=== PATIENT | female | born 1960 | race Caucasian/White ===

== ENCOUNTER → 2016-11-14 | Outpatient (CLI) | payer OTHER ==
--- NOTE | 2016-11-15 07:25 | MM ---
Reason for exam: follow-up at short interval from prior study. Last mammogram was performed 8 months ago. History: Patient is postmenopausal, has history of other cancer at age 55, and is nulliparous. Benign lumpectomy of the right breast, 1990. Taking estrogen for 10 years beginning at age 46. Physical Findings: Nurse did not find any significant physical abnormalities on exam. MG 3D Diag Mammo W/Cad LT CC and MLO view(s) were taken of the left breast. Prior study comparison: March 07, 2016, bilateral MG 3d screening mammo w/cad. March 02, 2015, bilateral MG screening mammo w CAD. The breast tissue is heterogeneously dense. This may lower the sensitivity of mammography. There is chronic nodularity bilaterally. There is no dominant lesion. No significant new findings when compared with previous films. These results were verbally communicated with the patient and result sheet given to the patient on 11/14/16. ASSESSMENT: Benign, BI-RAD 2 RECOMMENDATION: Return to routine screening mammogram schedule for both breasts. Back on schedule for February 2017.
== END | disposition home or self-care (01) ==
LOC: RADMAMWWP 15:34
PROVIDERS: ATTEND Family Medicine
DX: R92.8 Other abnormal and inconclusive findings on diagnostic imaging of breast (principal)
CPT/HCPCS: G0206; G0279

== ENCOUNTER → 2017-05-14 | Outpatient (CLI) | payer OTHER ==
--- NOTE | 2017-05-15 09:13 | MM ---
Reason for exam: screening (asymptomatic). Last mammogram was performed 6 months ago. History: Patient is postmenopausal, has history of other cancer at age 55, and is nulliparous. Benign lumpectomy of the right breast, 1990. Taking estrogen for 10 years beginning at age 46. Physical Findings: A clinical breast exam by your physician is recommended on an annual basis and results should be correlated with mammographic findings. MG 3D Screening Mammo W/Cad Bilateral CC and MLO view(s) were taken. Prior study comparison: November 14, 2016, left breast MG 3d diag mammo w/cad LT. March 07, 2016, bilateral MG 3d screening mammo w/cad. March 02, 2015, bilateral MG screening mammo w CAD. The breast tissue is heterogeneously dense. This may lower the sensitivity of mammography. There is chronic nodularity bilaterally. There is no discrete abnormality. ASSESSMENT: Negative, BI-RAD 1 RECOMMENDATION: Routine screening mammogram of both breasts in 1 year.
== END | disposition home or self-care (01) ==
LOC: RADMAMWWP 16:14
PROVIDERS: ATTEND Family Medicine
DX: Z12.31 Encounter for screening mammogram for malignant neoplasm of breast (principal)
CPT/HCPCS: 77063; 77067

== ENCOUNTER → 2017-10-16 | Outpatient (CLI) | payer OTHER ==
--- NOTE | 2017-10-17 09:47 | USB ---
Reason for exam: clinical finding. History: Patient is postmenopausal, has history of other cancer at age 55, and is nulliparous. Benign lumpectomy of the right breast, 1990. Taking estrogen for 10 years beginning at age 46. Indicated problem(s): palpable abnormality in the right breast. Physical Findings: Nurse Summary: 1cm nodule, moves, nipple (nurse dw). US Breast RT Right complete breast ultrasound includes all four quadrants, the retroareolar region and axilla. Finding demonstrates a 0.4 x 0.4 x 0.4cm complicated cyst with increase through transmission at 7 o'clock and hypoechoic ductal prominence at 9 o'clock. These results were verbally communicated with the patient and result sheet given to the patient on 10/16/17. ASSESSMENT: Benign, BI-RAD 2 RECOMMENDATION: Return to routine screening mammogram schedule for both breasts. Manage patient on a clinical basis. If nipple discharge occurs ductogram could be performed.
== END | disposition home or self-care (01) ==
LOC: RADUSWWP 15:28
PROVIDERS: ATTEND Family Medicine
DX: N64.4 Mastodynia (principal)

== ENCOUNTER → 2018-03-24 | Outpatient (CLI) | payer OTHER ==
--- NOTE | 2018-03-24 10:38 | US ---
EXAMINATION TYPE: US gallbladder DATE OF EXAM: 03/24/2018 COMPARISON: NONE CLINICAL HISTORY: R10.11 right upper quadrant pain. EXAM MEASUREMENTS: Liver Length: 13.7 cm Gallbladder Wall: 0.3 cm CBD: 0.5 cm Right Kidney: 9.9 x 4.7 x 4.9 cm Pancreas: visualized portions wnl Liver: wnl Gallbladder: multiple mobile stones with shadowing Evidence for sonographic Pozo's sign: No CBD: wnl Right Kidney: No hydronephrosis or masses seen, lower pole partially obscured by bowel gas. IMPRESSION: Cholelithiasis
== END | disposition home or self-care (01) ==
LOC: RADUSWWP 07:09
PROVIDERS: ATTEND Surgery
DX: K80.20 Calculus of gallbladder without cholecystitis without obstruction (principal)
CPT/HCPCS: 76705

== ENCOUNTER → 2018-05-16 | Outpatient (CLI) | payer OTHER ==
--- NOTE | 2018-05-23 13:12 | MM ---
Reason for exam: screening (asymptomatic). Last mammogram was performed 1 year ago. History: Patient is postmenopausal, has history of other cancer at age 55, and is nulliparous. Benign lumpectomy of the right breast, 1990. Taking estrogen for 10 years beginning at age 46. MG 3D Screening Mammo W/Cad Bilateral CC and MLO view(s) were taken. Prior study comparison: May 14, 2017, bilateral MG 3d screening mammo w/cad. November 14, 2016, left breast MG 3d diag mammo w/cad LT. The breast tissue is heterogeneously dense. This may lower the sensitivity of mammography. No suspicious abnormality in the left breast. There is retroareoral central distortion in the right breast on the 3D images. ASSESSMENT: Incomplete: need additional imaging evaluation, BI-RAD 0 RECOMMENDATION: Special view mammogram of the right breast.
== END | disposition home or self-care (01) ==
LOC: RADMAMWWP 08:56
PROVIDERS: ATTEND Surgery
DX: Z12.31 Encounter for screening mammogram for malignant neoplasm of breast (principal)
CPT/HCPCS: 77063; 77067

== ENCOUNTER → 2018-06-11 | Outpatient (CLI) | payer OTHER ==
--- NOTE | 2018-06-13 12:09 | MM ---
Reason for exam: additional evaluation requested from abnormal screening. Last mammogram was performed 1 month ago. History: Patient is postmenopausal, has history of other cancer at age 55, and is nulliparous. Benign lumpectomy of the right breast, 1990. Taking estrogen for 10 years beginning at age 46. Taking progesterone for 10 years beginning at age 46. Physical Findings: Nurse Summary: 1cm nodule in the right breast at 8 o'clock (nurse mj). MG 3D Work Up W/Cad RT Spot compression CC, spot compression MLO, and LM view(s) were taken of the right breast. Prior study comparison: May 16, 2018, bilateral MG 3d screening mammo w/cad. May 14, 2017, bilateral MG 3d screening mammo w/cad. The breast tissue is heterogeneously dense. This may lower the sensitivity of mammography. Dense tissues are present. Palpable marker at 8 o'clock corresponds to site of pain. No definite persisting abnormality. Ultrasound recommended. These results were verbally communicated with the patient and result sheet given to the patient on 06/11/18. ASSESSMENT: Incomplete: need additional imaging evaluation, BI-RAD 0 RECOMMENDATION: Ultrasound of the right breast. (7-11 o'clock, particular attention 8 o'clock)
--- NOTE | 2018-06-13 12:11 | USB ---
Reason for exam: additional evaluation requested from abnormal screening. History: Patient is postmenopausal, has history of other cancer at age 55, and is nulliparous. Benign lumpectomy of the right breast, 1990. Taking estrogen for 10 years beginning at age 46. Taking progesterone for 10 years beginning at age 46. US Breast Workup Limited RT Right limited breast ultrasound including focal area of concern, retroareolar and axilla demonstrates a 4 x 4 x 4mm oval, cystic, benign lesion at 9 o'clock, a 3 x 3 x 3mm oval, cystic, benign lesion at 11 o'clock and benign duct ectasia. No suspicious finding at the palpable at 8 o'clock position. Scanned 6-12 o'clock. These results were verbally communicated with the patient and result sheet given to the patient on 06/11/18. ASSESSMENT: Benign, BI-RAD 2 RECOMMENDATION: Return to routine screening mammogram schedule for the right breast. Manage on a clinical basis with regard to any suspicious palpable abnormality.
== END | disposition home or self-care (01) ==
LOC: RADMAMWWP 14:40
PROVIDERS: ATTEND Surgery
DX: R92.8 Other abnormal and inconclusive findings on diagnostic imaging of breast (principal)
CPT/HCPCS: 77061; 77065

== ENCOUNTER 2018-12-21 10:33 | Emergency (ER) | payer OTHER ==
[2018-12-21 10:42] VITALS: BP 146/81; PULSE 86; RESP 18; TEMP 97.3
[2018-12-21] MEDS ORDERED: HYDROcodone/APAP 5-325MG 1 EACH TAB PO STA (11:02)
--- NOTE | 2018-12-21 11:24 | XR ---
EXAMINATION TYPE: XR lumbosacral spine min 4V DATE OF EXAM: 12/21/2018 COMPARISON: None HISTORY: Pain TECHNIQUE: Five-view lumbar spine FINDINGS: There 5 lumbar-type vertebral bodies. Pedicles are intact. There is loss of disc height L4- 5. Spondylosis is present. No spondylolytic defects are evident. Degenerative disc changes are presen t diffusely throughout the lumbar spine, less than L4-5. Some vacuum disc phenomenon may be present L 4-5. IMPRESSION: 1. Diffuse degenerative disc changes, greatest L4-5.
--- NOTE | 2018-12-21 11:46 | ED ---
Back Pain HPI - General Chief Complaint: Back Pain/Injury Stated Complaint: Back pain Time Seen by Provider: 12/21/18 10:43 Source: patient, RN notes reviewed Limitations: no limitations - History of Present Illness Initial Comments: This a 58-year-old female presents emergency Department chief complaint of low back pain. She has chronic low back pain was had increase in symptoms or last week. Denies any trauma or injury or known injury that caused worsening symptoms. She states she has a burning sensation primary left low back and radiates down her legs. She denies any bowel, bladder incontinence or retention. She has no dysuria no hematuria denies any nausea vomiting diarrhea constipation. Patient did see PCP in which she was given a shot of Toradol states upset her stomach. Patient states that she also was given Robaxin by her neurologist. Patient's had an MRI of July but states that she does not know any specifics of this she has been working with her chiropractor for traction and adjustments. - Related Data Previous Rx's Medication Instructions Recorded Hydrocodone/Acetaminophen [[place] 1 tab PO Q6HR PRN #12 tab 12/21/18 5-325] predniSONE 50 mg PO DAILY #5 tab 12/21/18 Allergies Allergy/AdvReac Type Severity Reaction Status Date / Time No Known Allergies Allergy Verified 12/21/18 10:42 Review of Systems ROS Statement: Those systems with pertinent positive or pertinent negative responses have been documented in the HPI. ROS Other: All systems not noted in ROS Statement are negative. Past Medical History Additional Past Medical History / Comment(s): back pain History of Any Multi-Drug Resistant Organisms: None Reported Past Surgical History: Hysterectomy, Orthopedic Surgery Additional Past Surgical History / Comment(s): colon resection - precancerous Past Psychological History: No Psychological Hx Reported Smoking Status: Never smoker Past Alcohol Use History: None Reported Past Drug Use History: None Reported General Exam Limitations: no limitations General appearance: alert, in no apparent distress Head exam: Present: atraumatic, normocephalic, normal inspection Eye exam: Present: normal appearance, PERRL, EOMI. Absent: scleral icterus, conjunctival injection, periorbital swelling Neck exam: Present: normal inspection, full ROM. Absent: tenderness, meningismus, lymphadenopathy Respiratory exam: Present: normal lung sounds bilaterally. Absent: respiratory distress, wheezes, rales, rhonchi, stridor Cardiovascular Exam: Present: regular rate, normal rhythm, normal heart sounds. Absent: systolic murmur, diastolic murmur, rubs, gallop, clicks GI/Abdominal exam: Present: soft, normal bowel sounds. Absent: distended, tenderness, guarding, rebound, rigid Extremities exam: Present: other (Lower extremity strength bilaterally there is moderate discomfort with left straight leg raise, neurovascular intact equal color equal warmth equal pulses) Back exam: Present: full ROM (Moderate discomfort), tenderness (Moderate tenderness left lumbar region), paraspinal tenderness. Absent: vertebral tenderness Neurological exam: Present: alert, oriented X3, reflexes normal. Absent: motor sensory deficit Skin exam: Present: warm, dry, intact, normal color. Absent: rash Course Vital Signs 12/21/18 10:39 Temperature 97.3 F L Pulse Rate 86 Respiratory 18 Rate Blood Pressure 146/81 O2 Sat by Pulse 99 Oximetry Medical Decision Making - Medical Decision Making 58-year-old female presented for low back pain. Patient has acute on chronic exacerbation of low back pain. Patient had x-rays which shows severe degenerati ve changes and some spondylosis. Patient was given [place] emergency department. This did improve her symptoms. Patient we given prescription. Patient will follow-up with Dr. Vogel with orthopedics and return for any worsening symptoms. Disposition Clinical Impression: Lumbar radiculopathy, acute, Acute exacerbation of chronic low back pain Disposition: HOME SELF-CARE Condition: Stable Instructions (If sedation given, give patient instructions): Acute Low Back Pain (ED) Additional Instructions: Please return to the Emergency Department if symptoms worsen or any other concerns. Prescriptions: Hydrocodone/Acetaminophen [[place] 5-325] 1 tab PO Q6HR PRN #12 tab PRN Reason: Pain predniSONE 50 mg PO DAILY #5 tab Is patient prescribed a controlled substance at d/c from ED?: Yes When asked, does pt state using other controlled substances?: No If prescribed controlled substance>3 days was MAPS reviewed?: Prescribed <3 Days If opioid is for acute pain is fill amount 7 days or less?: Yes If Rx opioid, was Start Talking consent form obtained?: Yes Referrals: Génesis Scott III, MD [Primary Care Provider] - 1-2 days Felecia Hyman DO [Doctor of Osteopathic Medicine] - 1-2 days Time of Disposition: 11:46
== END 2018-12-21 12:34 | disposition home or self-care (01) ==
LOC: EC 10:33
DX: M47.26 Other spondylosis with radiculopathy, lumbar region (principal)
CPT/HCPCS: 72110; 99283

== ENCOUNTER → 2019-06-02 | Outpatient (CLI) | payer OTHER ==
--- NOTE | 2019-06-03 08:53 | MM ---
Reason for exam: additional evaluation requested from prior study. Last mammogram was performed 1 year ago. History: Patient is postmenopausal, has history of other cancer at age 55, and is nulliparous. Benign cyst aspiration of the right breast, 1990. Taking estrogen for 12 years beginning at age 46. Taking progesterone for 12 years beginning at age 46. Physical Findings: Nurse did not find any significant physical abnormalities on exam. MG 3D Diag Mammo W/Cad BHAVESH Bilateral CC and MLO view(s) were taken. Prior study comparison: June 11, 2018, right breast MG 3d work up w/cad RT. May 16, 2018, bilateral MG 3d screening mammo w/cad. The breast tissue is heterogeneously dense. This may lower the sensitivity of mammography. There is chronic nodularity bilaterally. There is no discrete abnormality. These results were verbally communicated with the patient and result sheet given to the patient on 06/02/19. ASSESSMENT: Benign, BI-RAD 2 RECOMMENDATION: Routine screening mammogram of both breasts in 1 year.
== END | disposition home or self-care (01) ==
LOC: RADMAMWWP 15:01
PROVIDERS: ATTEND Surgery
DX: R92.8 Other abnormal and inconclusive findings on diagnostic imaging of breast (principal)
CPT/HCPCS: 77062; 77066

== ENCOUNTER → 2020-03-28 | Outpatient (CLI) | payer OTHER ==
--- NOTE | 2020-03-28 14:50 | MM ---
Reason for exam: clinical finding. Last mammogram was performed 10 months ago. History: Patient is postmenopausal, has history of other cancer at age 55, and is nulliparous. Benign cyst aspiration of the right breast, 1990. Taking estrogen for 12 years beginning at age 46. Taking progesterone for 12 years beginning at age 46. Physical Findings: Nurse did not find any significant physical abnormalities on exam. MG 3D Diag Mammo W/Cad BHAVESH Bilateral CC, MLO, and XCCL view(s) were taken. Prior study comparison: June 02, 2019, bilateral MG 3d diag mammo w/cad BHAVESH. June 11, 2018, right breast MG 3d work up w/cad RT. The breast tissue is heterogeneously dense. This may lower the sensitivity of mammography. Finding #1: There is a 10 mm mass in the upper outer quadrant of the right breast. Finding #2: There are typically benign calcifications in both breasts. These results were verbally communicated with the patient and result sheet given to the patient on 03/28/20. ASSESSMENT: Incomplete: need additional imaging evaluation, BI-RAD 0 RECOMMENDATION: Ultrasound of the right breast.
--- NOTE | 2020-03-28 14:52 | USB ---
Reason for exam: additional evaluation requested from abnormal screening. History: Patient is postmenopausal, has history of other cancer at age 55, and is nulliparous. Benign cyst aspiration of the right breast, 1990. Taking estrogen for 12 years beginning at age 46. Taking progesterone for 12 years beginning at age 46. US Breast RT Right complete breast ultrasound includes all four quadrants, the retroareolar region and axilla. Finding demonstrates a a 3 x 3 x 4mm oval, cystic lesion at 4 o'clock, a 3 x 3 x 3mm oval, cystic lesion at 7 o'clock, a 8 x 4 x 7mm cystic lesion at 8 o'clock, a 3 x 2 x 2mm cystic lesion at 10 o'clock and duct ectasia. These results were verbally communicated with the patient and result sheet given to the patient on 03/28/20. ASSESSMENT: Probably benign, BI-RAD 3 RECOMMENDATION: Follow-up diagnostic mammogram and ultrasound of the right breast in 6 months.
== END | disposition home or self-care (01) ==
LOC: RADMAMWWP 13:32
PROVIDERS: ATTEND Surgery
DX: N64.4 Mastodynia (principal)
CPT/HCPCS: 77062; 77066

== ENCOUNTER 2020-06-01 12:14 | Emergency (ER) | payer OTHER ==
[2020-06-01 12:22] VITALS: TEMP 98.1
[2020-06-01] MEDS ORDERED: ALPRAZolam 0.5 MG TAB PO STA (12:39)
--- NOTE | 2020-06-01 12:41 | ED ---
General Adult HPI - General Chief complaint: Shortness of Breath Stated complaint: SOB Time Seen by Provider: 06/01/20 12:25 Source: patient Mode of arrival: ambulatory Limitations: no limitations - History of Present Illness Initial comments: Dictation was produced using [employer] dictation software. please excuse any grammatical, word or spelling errors. This patient was cared for during a federal and state declared state of emergency secondary to Covid 19 Chief Complaint: 59-year-old female past medical history of back pain and hor adrien therapy presents with 3 days of shortness of breath. History of Present Illness: 59-year-old female she presents with shortness of breath. Patient has been having shortness of breath for the last 3-4 days. She went to see her primary care physician yesterday who ordered a outpatient ultrasound of her right lower extremity to rule out DVT. Patient has some ankle pain. She denies any calf pain, popliteal pain or medial thigh pain. Patient has any cough. No fevers. Since that her symptoms are worse with talking, exerting herself and lying flat. Patient does feel anxious. She did test for coronavirus 4 times all came up negative. Patient takes hormone therapy pills. She states that her PCP has been weaning her off of them. The ROS documented in this emergency department record has been reviewed and confirmed by me. Those systems with pertinent positive or negative responses have been documented in the HPI. All other systems are other negative and/or noncontributory. PHYSICAL EXAM: General Impression: Alert and oriented x3, not in acute distress HEENT: Normocephalic atraumatic, extra-ocular movements intact, pupils equal and reactive to light bilaterally, mucous membranes moist. Cardiovascular: Heart regular rate and rhythm Chest: Able to complete full sentences, no retractions, no tachypnea, lungs clear to auscultation bilaterally Abdomen: abdomen soft, non-tender, non-distended, no organomegaly Musculoskeletal: Pulses present and equal in all extremities, no peripheral edema Motor: no focal deficits noted Neurological: CN II-XII grossly intact, no focal motor or sensory deficits noted Skin: Intact with no visualized rashes Psych: Tearful, anxious ED course: 59-year-old female presents to the emergency Department with shortness of breath. Vital signs upon arrival are within acceptable limits.Laboratory evaluation obtained. CBC unremarkable. Coag panel metabolic panel is negative. Troponins negative. Brain natruretic peptide is negative. CT angios the chest shows no evidence for pulmonary embolism. No suspicious acute pulmonary process. Ultrasound of the lower extremity shows no DVT. Patient's well-appearing at bedside. Patient likely has component of anxiety. Patient be discharged. EKG interpretation: Ventricular rate 82, sinus rhythm,. 166, QRS 76, QTC 427. No AL prolongation, no QTC prolongation, no ST or T-wave changes noted. Overall, this EKG is unremarkable - Related Data Previous Rx's Medication Instructions Recorded Hydrocodone/Acetaminophen [[place] 1 tab PO Q6HR PRN #12 tab 12/21/18 5-325] predniSONE 50 mg PO DAILY #5 tab 12/21/18 Allergies Allergy/AdvReac Type Severity Reaction Status Date / Time No Known Allergies Allergy Verified 06/01/20 12:21 Review of Systems ROS Statement: Those systems with pertinent positive or pertinent negative responses have been documented in the HPI. ROS Other: All systems not noted in ROS Statement are negative. Past Medical History Additional Past Medical History / Comment(s): back pain History of Any Multi-Drug Resistant Organisms: None Reported Past Surgical History: Hysterectomy, Orthopedic Surgery Additional Past Surgical History / Comment(s): colon resection - precancerous Past Psychological History: No Psychological Hx Reported Past Alcohol Use History: None Reported Past Drug Use History: None Reported General Exam Limitations: no limitations Course Vital Signs 06/01/20 12:15 Temperature 98.1 F Pulse Rate 82 Respiratory 18 Rate Blood Pressure 163/85 O2 Sat by Pulse 98 Oximetry Medical Decision Making - Lab Data Result diagrams: 06/01/20 12:53 06/01/20 12:53 Lab Results 06/01/20 06/01/20 06/01/20 Range/Units 12:53 12:53 12:53 WBC 12.6 H (3.8-10.6) k/uL RBC 4.99 (3.80-5.40) m/uL Hgb 15.5 (11.4-16.0) gm/dL Hct 44.7 (34.0-46.0) % MCV 89.6 (80.0-100.0) fL MCH 31.1 (25.0-35.0) pg MCHC 34.8 (31.0-37.0) g/dL RDW 12.5 (11.5-15.5) % Plt Count 271 (150-450) k/uL MPV 7.7 Neutrophils % 75 % Lymphocytes % 18 % Monocytes % 4 % Eosinophils % 2 % Basophils % 1 % Neutrophils # 9.5 H (1.3-7.7) k/uL Lymphocytes # 2.3 (1.0-4.8) k/uL Monocytes # 0.5 (0-1.0) k/uL Eosinophils # 0.2 (0-0.7) k/uL Basophils # 0.1 (0-0.2) k/uL PT 9.8 (9.0-12.0) sec INR 0.9 (<1.2) APTT 22.7 (22.0-30.0) sec Sodium 137 (137-145) mmol/L Potassium 4.8 (3.5-5.1) mmol/L Chloride 107 (98-107) mmol/L Carbon Dioxide 21 L (22-30) mmol/L Anion Gap 9 mmol/L BUN 11 (7-17) mg/dL Creatinine 0.58 (0.52-1.04) mg/dL Est GFR (CKD-EPI)AfAm >90 (>60 ml/min/1.73 sqM) Est GFR (CKD-EPI)NonAf >90 (>60 ml/min/1.73 sqM) Glucose 111 H (74-99) mg/dL Calcium 10.0 (8.4-10.2) mg/dL Magnesium 2.1 (1.6-2.3) mg/dL Troponin I (0.000-0.034) ng/mL NT-Pro-B Natriuret Pep pg/mL 06/01/20 06/01/20 Range/Units 12:53 12:53 WBC (3.8-10.6) k/uL RBC (3.80-5.40) m/uL Hgb (11.4-16.0) gm/dL Hct (34.0-46.0) % MCV (80.0-100.0) fL MCH (25.0-35.0) pg MCHC (31.0-37.0) g/dL RDW (11.5-15.5) % Plt Count (150-450) k/uL MPV Neutrophils % % Lymphocytes % % Monocytes % % Eosinophils % % Basophils % % Neutrophils # (1.3-7.7) k/uL Lymphocytes # (1.0-4.8) k/uL Monocytes # (0-1.0) k/uL Eosinophils # (0-0.7) k/uL Basophils # (0-0.2) k/uL PT (9.0-12.0) sec INR (<1.2) APTT (22.0-30.0) sec Sodium (137-145) mmol/L Potassium (3.5-5.1) mmol/L Chloride (98-107) mmol/L Carbon Dioxide (22-30) mmol/L Anion Gap mmol/L BUN (7-17) mg/dL Creatinine (0.52-1.04) mg/dL Est GFR (CKD-EPI)AfAm (>60 ml/min/1.73 sqM) Est GFR (CKD-EPI)NonAf (>60 ml/min/1.73 sqM) Glucose (74-99) mg/dL Calcium (8.4-10.2) mg/dL Magnesium (1.6-2.3) mg/dL Troponin I <0.012 (0.000-0.034) ng/mL NT-Pro-B Natriuret Pep 69 pg/mL Disposition Clinical Impression: Dyspnea Disposition: HOME SELF-CARE Condition: Good Instructions (If sedation given, give patient instructions): Dyspnea (ED) Is patient prescribed a controlled substance at d/c from ED?: No Referrals: Makayla Bower MD [Primary Care Provider] - 1-2 days Time of Disposition: 14:33
[2020-06-01 13:05] LABS: Basophils # (A) 0.1 k/uL (0-0.2); Basophils % (A) 1 %; Eosinophils # (A) 0.2 k/uL (0-0.7); Eosinophils % (A) 2 %; HCT 44.7 % (34.0-46.0); HGB 15.5 gm/dL (11.4-16.0); Lymphocytes # (A) 2.3 k/uL (1.0-4.8); Lymphocytes % (A) 18 %; MCH 31.1 pg (25.0-35.0); MCHC 34.8 g/dL (31.0-37.0); MCV 89.6 fL (80.0-100.0); Mean Platelet Volume 7.7; Monocytes # (A) 0.5 k/uL (0-1.0); Monocytes % (A) 4 %; Neutrophils # (A) 9.5 k/uL (1.3-7.7); Neutrophils % (A) 75 %; Platelet Count 271 k/uL (150-450); RBC 4.99 m/uL (3.80-5.40); RDW 12.5 % (11.5-15.5); WBC 12.6 k/uL (3.8-10.6)
[2020-06-01 13:14] LABS: African American GFR (CKD) >90 (>60 ml/min/1.73 sqM); Anion Gap 9 mmol/L; Blood Urea Nitrogen 11 mg/dL (7-17); Carbon Dioxide 21 mmol/L (22-30); Chloride 107 mmol/L (98-107); Glucose 111 mg/dL (74-99); Non-African American GFR(CKD) >90 (>60 ml/min/1.73 sqM); Sodium 137 mmol/L (137-145)
[2020-06-01 13:22] LABS: INR 0.9 (<1.2); Magnesium 2.1 mg/dL (1.6-2.3); Partial Thromboplastin Time 22.7 sec (22.0-30.0); Potassium 4.8 mmol/L (3.5-5.1); Prothrombin Time 9.8 sec (9.0-12.0)
--- NOTE | 2020-06-01 14:01 | CT ---
EXAMINATION TYPE: CT angio chest DATE OF EXAM: 06/01/2020 1:46 PM COMPARISON: None. HISTORY: Shortness of breath, positive d-dimer. CT DLP: 343 mGycm Automated exposure control for dose reduction was used. CONTRAST: CTA scan of the thorax is performed with IV Contrast, patient injected with 61 mL of Isovue 300, pulm onary embolism protocol. MIP images are created and reviewed. FINDINGS: LUNGS: The lungs are grossly clear, there is no concerning parenchymal mass or nodule identified. T here is no pleural effusion or pneumothorax seen. The tracheobronchial tree is patent. Mild anterior bibasilar linear scarring and/or atelectasis. Mild emphysematous change in the lung apices. MEDIASTINUM: There is slightly suboptimal bolus but there is no CT evidence for pulmonary embolism. S atisfactory enhancement of the aorta without aneurysm or dissection. There are no greater than 1 cm h ilar or mediastinal lymph nodes. Tiny pericardial effusion is seen. No cardiomegaly. OTHER: Cholecystectomy clips. Slight underlying scoliotic curvature with mild/moderate multilevel spu rring. Partial visualization of surgical change in the cervical spine. IMPRESSION: No CT evidence for acute pulmonary embolism. No suspicious acute pulmonary process.
--- NOTE | 2020-06-01 14:29 | US ---
EXAMINATION TYPE: US venous doppler duplex LE RT DATE OF EXAM: 06/01/2020 2:22 PM COMPARISON: NONE CLINICAL HISTORY: suspect dvt. edema SIDE PERFORMED: Right TECHNIQUE: The lower extremity deep venous system is examined utilizing real time linear array sonog marylin with graded compression, doppler sonography and color-flow sonography. VESSELS IMAGED: Common Femoral Vein Deep Femoral Vein Greater Saphenous Vein * Femoral Vein Popliteal Vein Small Saphenous Vein * Proximal Calf Veins (* superficial vessels) Right Leg: Negative for DVT Grayscale, color doppler, spectral doppler imaging performed of the deep veins of the right lower ext remity. There is normal flow, compressibility, vascular waveforms. IMPRESSION: No ultrasound evidence for acute DVT in the right lower extremity.
[2020-06-01 15:00] VITALS: BP 126/73; PULSE 79; RESP 16
== END 2020-06-01 15:08 | disposition home or self-care (01) ==
LOC: EC 12:14
DX: R06.02 Shortness of breath (principal); M25.579 Pain in unspecified ankle and joints of unspecified foot; R05 Cough; F41.9 Anxiety disorder, unspecified
CPT/HCPCS: 36415; 93005; 83880; 80048; 83735; 84484; 85025; 85610; 85730; 93971; 71275; 99285; Q9967

== ENCOUNTER → 2020-09-14 | Outpatient (CLI) | payer OTHER ==
--- NOTE | 2020-09-16 10:34 | MM ---
Reason for exam: follow-up at short interval from prior study. Last mammogram was performed 6 months ago. History: Patient is postmenopausal, has history of other cancer at age 55, and is nulliparous. Benign excisional biopsy of the right breast, 1990. Taking estrogen for 12 years beginning at age 46. Taking progesterone for 12 years beginning at age 46. Physical Findings: Nurse did not find any significant physical abnormalities on exam. MG 3D Diag Mammo W/Cad RT CC and MLO view(s) were taken of the right breast. Prior study comparison: March 28, 2020, bilateral MG 3d diag mammo w/cad BHAVESH. June 02, 2019, bilateral MG 3d diag mammo w/cad BHAVESH. The breast tissue is heterogeneously dense. This may lower the sensitivity of mammography. There is chronic nodularity in the right breast. There is no dominant lesion. No significant new findings when compared with previous films. These results were verbally communicated with the patient and result sheet given to the patient on 09/14/20. ASSESSMENT: Benign, BI-RAD 2 RECOMMENDATION: Routine screening mammogram of both breasts in 6 months. Back on schedule.
--- NOTE | 2020-09-16 10:36 | USB ---
Reason for exam: follow-up at short interval from prior study. History: Patient is postmenopausal, has history of other cancer at age 55, and is nulliparous. Benign excisional biopsy of the right breast, 1990. Taking estrogen for 12 years beginning at age 46. Taking progesterone for 12 years beginning at age 46. US Breast Limited RT Right limited breast ultrasound including focal area of concern, retroareolar and axilla demonstrates a 0.7 x 0.7 x 0.3cm cystic lesion at 4 o'clock, a 0.7 x 0.7 x 0.4cm cystic lesion at 7 o'clock, a 0.5 x 0.5 x 0.3cm cystic lesion at 8 o'clock and duct ectasia at 9 o'clock. These results were verbally communicated with the patient and result sheet given to the patient on 09/14/20. ASSESSMENT: Benign, BI-RAD 2 RECOMMENDATION: Routine screening mammogram of both breasts in 6 months. Back on schedule.
== END | disposition home or self-care (01) ==
LOC: RADMAMWWP 13:45
PROVIDERS: ATTEND Surgery
DX: N60.01 Solitary cyst of right breast (principal); R92.2 Inconclusive mammogram; N60.41 Mammary duct ectasia of right breast; Z78.0 Asymptomatic menopausal state
CPT/HCPCS: 77061; 77065

== ENCOUNTER → 2020-11-16 | Outpatient (CLI) | payer OTHER | END | disposition home or self-care (01) | LOC: LABPAT 14:57 | PROVIDERS: ATTEND Orthopaedic Surgery | DX: Z01.812 Encounter for preprocedural laboratory examination (principal) | CPT/HCPCS: 85730; 87070 ==

== ENCOUNTER → 2021-02-23 | Outpatient (CLI) | payer BC ==
[2021-02-23 16:36] LABS: INR 0.9 (<1.2); Partial Thromboplastin Time 23.2 sec (22.0-30.0); Prothrombin Time 9.6 sec (9.0-12.0)
[2021-02-24 05:05] LABS: Anion Gap 13.1 mmol/L (4.00-12.00); Carbon Dioxide 24.3 mmol/L (21.6-31.8); Potassium 5.1 mmol/L (3.5-5.5)
== END | disposition home or self-care (01) ==
LOC: LABWHC1 15:34
PROVIDERS: ATTEND Orthopaedic Surgery Sports Medicine
DX: M17.12 Unilateral primary osteoarthritis, left knee (principal)
CPT/HCPCS: 36415; 80051; 85610; 85730; 87070

== ENCOUNTER 2021-03-20 13:55 | Emergency (ER) | payer BC ==
[2021-03-20 14:01] VITALS: BP 135/67; TEMP 98
--- NOTE | 2021-03-20 14:14 | ED ---
Extremity Problem HPI - General Chief complaint: Extremity Problem,Nontraumatic Stated complaint: Poss DVT Time Seen by Provider: 03/20/21 14:01 Source: patient, RN notes reviewed Mode of arrival: ambulatory Limitations: no limitations - History of Present Illness Initial comments: Patient is a 60-year-old female presenting to the emergency Department with concerns of possible blood clot in her left lower leg. Patient had a left knee replacement March [address] Montes. She had her first outpatient physical therapy appointment today and she was quite tender in the left calf and they recommended coming in for ultrasound to rule out a blood clot. She has been having swelling in her left lower leg. She has been doing elevation. She denies any fevers or chills, no chest pain or shortness of breath, no cough or congestion. Her pain has been well-controlled. She has no history of blood clots, she was on aspirin twice daily for the first 2 weeks after surgery, she no longer takes this. She has no further complaints. Her vitals are stable. - Related Data Home Medications Medication Instructions Recorded Confirmed Cannabidiol (Cbd) [Epidiolex] 0 mg PO HS 11/29/20 11/29/20 Cholecalciferol [Vitamin D3 (25 125 mcg PO DAILY 11/29/20 11/29/20 Mcg = 1000 Iu)] Estradiol [Estrace] 1.5 mg PO HS 11/29/20 11/29/20 Famotidine [Pepcid] 20 mg PO DAILY 11/29/20 11/29/20 Ferrofood Iron 1 tab PO DAILY 11/29/20 11/29/20 Fish Oil Tab 1 tab PO DAILY 11/29/20 11/29/20 Gabapentin [Neurontin] 100 mg PO Q8HR PRN 11/29/20 11/29/20 HYDROcodone/APAP 10-325MG [[place] 1 - 2 tab PO Q4HR PRN 11/29/20 11/29/20 10-325] Progesterone, Micronized 100 mg PO HS 11/29/20 11/29/20 [Progesterone] Thyroid,Pork [Geophysical E Logger Thyroid] 15 mg PO QAM 11/29/20 11/29/20 Thyroid,Pork [Geophysical E Logger Thyroid] 60 mg PO QAM 11/29/20 11/29/20 Vitamin B Complex 1 each PO DAILY 11/29/20 11/29/20 metFORMIN HCL [Glucophage] 500 mg PO W/SUPPER 11/29/20 11/29/20 methocarbamoL [Robaxin] 750 mg PO HS PRN 11/29/20 11/29/20 Allergies Allergy/AdvReac Type Severity Reaction Status Date / Time No Known Allergies Allergy Verified 03/20/21 14:08 Review of Systems ROS Statement: Those systems with pertinent positive or pertinent negative responses have been documented in the HPI. ROS Other: All systems not noted in ROS Statement are negative. Past Medical History Additional Past Medical History / Comment(s): back pain History of Any Multi-Drug Resistant Organisms: None Reported Past Surgical History: Hysterectomy, Orthopedic Surgery Additional Past Surgical History / Comment(s): colon resection - precancerous Past Psychological History: No Psychological Hx Reported Smoking Status: Never smoker Past Alcohol Use History: None Reported Past Drug Use History: None Reported General Exam - General Exam Comments Initial Comments: GENERAL: Patient is well-developed and well-nourished. Patient is nontoxic and in no acute distress. HEAD: Atraumatic, normocephalic. EYES: Pupils equal round and reactive to light, extraocular movements intact, sclera anicteric, conjunctiva are normal. Eyelids were unremarkable. ENT: Moist mucous membranes. LUNGS: Unlabored respirations. Breath sounds clear to auscultation bilaterally and equal. No wheezes rales or rhonchi. HEART: Regular rate and rhythm without murmurs, rubs or gallops. MUSCULOSKELETAL: Patient has 2+ edema to the left lower leg compared to the right, she does have recent surgical incision left knee, there is no signs of infection. Her pulses are equal and bilateral lower extremities. She does have pain with palpation a left calf. No clubbing or cyanosis. NEUROLOGICAL: Patient is alert and oriented x 3. Motor and sensory are also intact. Normal speech, normal gait. PSYCH: Normal mood, normal affect. SKIN: Warm, Dry, normal turgor, no rashes or lesions noted. Limitations: no limitations Course Vital Signs 03/20/21 13:55 Temperature 98.0 F Pulse Rate 84 Respiratory 18 Rate Blood Pressure 135/67 O2 Sat by Pulse 99 Oximetry Medical Decision Making - Medical Decision Making Patient is a 60-year-old female here to rule out blood clot, she had left knee replacement March 01. She has some pain and swelling in the left calf. No history of blood clots, she is not on blood thinners. Her vitals are stable. U ltrasound reveals no evidence of left lower extremity DVT. Discussed these findings with the patient. I recommended continuing with elevation above her heart level, ankle pumps and continue with outpatient physical therapy. She is agreeable to this plan of care and she is stable for discharge. Disposition Clinical Impression: Pain in left lower leg, Status post left knee replacement Disposition: HOME SELF-CARE Condition: Stable Instructions (If sedation given, give patient instructions): Leg Edema (ED) Additional Instructions: Please return to the Emergency Department if symptoms worsen or any other concerns. Recommend elevation above the heart level, ankle pumps, continue with outpatient physical therapy. Follow-up with your surgeon as needed. Is patient prescribed a controlled substance at d/c from ED?: No Referrals: Makayla Bower MD [Primary Care Provider] - 1-2 days Time of Disposition: 15:12
--- NOTE | 2021-03-20 14:38 | US ---
EXAMINATION TYPE: US venous doppler duplex LE LT DATE OF EXAM: 03/20/2021 2:33 PM COMPARISON: NONE CLINICAL HISTORY: recent surgery, swelling, pain in calf. Recent left knee replacement SIDE PERFORMED: Left TECHNIQUE: The lower extremity deep venous system is examined utilizing real time linear array sonog marylin with graded compression, doppler sonography and color-flow sonography. VESSELS IMAGED: Common Femoral Vein Deep Femoral Vein Greater Saphenous Vein * Femoral Vein Popliteal Vein Small Saphenous Vein * Proximal Calf Veins (* superficial vessels) Left Leg: Negative for DVT Grayscale, color doppler, spectral doppler imaging performed of the deep veins of the left lower extr emity. There is normal flow, compressibility, vascular waveforms. IMPRESSION: No ultrasound evidence for acute DVT in the left lower extremity.
[2021-03-20 15:33] VITALS: PULSE 77; RESP 16
== END 2021-03-20 15:33 | disposition home or self-care (01) ==
LOC: SUPCPDRO 13:55 → EC 13:55
DX: M79.662 Pain in left lower leg (principal); Z96.652 Presence of left artificial knee joint; Z79.84 Long term (current) use of oral hypoglycemic drugs; Z90.710 Acquired absence of both cervix and uterus
CPT/HCPCS: 99283

== ENCOUNTER → 2021-06-06 | Outpatient (CLI) | payer BC ==
--- NOTE | 2021-06-07 10:12 | MM ---
Reason for exam: screening (asymptomatic). Last mammogram was performed 9 months ago. History: Patient is postmenopausal, has history of other cancer at age 55, and is nulliparous. Benign excisional biopsy of the right breast, 1990. Taking estrogen for 12 years beginning at age 46. Taking progesterone for 12 years beginning at age 46. Physical Findings: A clinical breast exam by your physician is recommended on an annual basis and results should be correlated with mammographic findings. MG 3D Screening Mammo W/Cad Bilateral CC and MLO view(s) were taken. Prior study comparison: September 14, 2020, right breast MG 3d diag mammo w/cad RT. March 28, 2020, bilateral MG 3d diag mammo w/cad BHAVESH. The breast tissue is heterogeneously dense. This may lower the sensitivity of mammography. There is no discrete abnormality. No significant changes when compared with prior studies. ASSESSMENT: Negative, BI-RAD 1 RECOMMENDATION: Routine screening mammogram of both breasts in 1 year.
== END | disposition home or self-care (01) ==
LOC: RADMAMWWP 14:30
PROVIDERS: ATTEND Surgery
DX: Z12.31 Encounter for screening mammogram for malignant neoplasm of breast (principal); Z78.0 Asymptomatic menopausal state
CPT/HCPCS: 77063; 77067

== ENCOUNTER → 2022-08-03 | Outpatient (CLI) | payer MEDICARE ==
--- NOTE | 2022-08-03 13:20 | CT ---
EXAMINATION TYPE: CT abdomen pelvis w con CT DLP: 1224.6 mGycm, Automated exposure control for dose reduction was used. DATE OF EXAM: 08/03/2022 1:05 PM COMPARISON: CT abdomen pelvis most recent from 01/23/2011. CLINICAL INDICATION:Female, 61 years old with history of K21.9 gerd, R10.9 abn pain; right sided abdo marya pain TECHNIQUE: Standard CT of the abdomen and pelvis following the administration of 100 cc of Isovue 3 00 IV contrast material and oral contrast. Coronal and sagittal reformats were performed. FINDINGS: LOWER CHEST: Unremarkable ABDOMEN LIVER: Subcentimeter hypodensity within the inferior right hepatic lobe posteriorly which is too smal l to characterize. Stable subcentimeter hypodensity within the left hepatic lobe which is likely a sm all cyst. GALLBLADDER AND BILE DUCTS: The gallbladder is surgically absent. No biliary ductal dilatation. PANCREAS: Unremarkable. SPLEEN: Unremarkable. ADRENAL GLANDS: Right adrenal gland is unremarkable. Stable left adrenal gland 1.7 cm nodule dating b ack to 2010 and considered benign. KIDNEYS AND URETERS: No evidence of hydronephrosis or renal calculus. The kidneys enhance symmetrical ly without suspicious focal lesion. Contrast is demonstrated within both collecting systems on the de layed phase. PELVIS BLADDER: Unremarkable REPRODUCTIVE: The uterus is surgically absent. No suspicious adnexal mass. ABDOMEN & PELVIS STOMACH AND BOWEL: Stomach and duodenum are unremarkable no focal wall thickening or surrounding infl ammatory changes Enteric contrast reaches the descending colon. Nonvisualization of the appendix with a surgical clip in the right lower quadrant. Correlate for prior appendectomy. No evidence of bowel obstruction. PERITONEUM: No evidence of pneumoperitoneum or free fluid. VASCULATURE: Mild atherosclerotic calcifications are present throughout the abdominal aorta and its b ranches. No evidence of aortic aneurysm. MUSCULOSKELETAL: No acute osseous abnormalities. Sclerotic focus within the right iliac bone is favor ed to represent a benign bone island. Multilevel degenerative changes of the visualized spine. LYMPH NODES: No gross evidence for lymphadenopathy. SOFT TISSUE/ABDOMINAL WALL: Small fat filled umbilical hernia. IMPRESSION: No acute abdominal/pelvic process.
== END | disposition home or self-care (01) ==
LOC: RADCTMAIN 11:02
PROVIDERS: ATTEND Family Medicine
DX: K21.9 Gastro-esophageal reflux disease without esophagitis (principal); R10.9 Unspecified abdominal pain
CPT/HCPCS: 74177; Q9967

== ENCOUNTER 2023-08-31 14:42 | Emergency (ER) | payer MEDICARE ==
--- NOTE | 2023-08-31 15:00 | ED ---
Abdominal Pain HPI - General Chief Complaint: Abdominal Pain Stated Complaint: R sided flank pain Time Seen by Provider: 08/31/23 14:45 Source: patient, RN notes reviewed Mode of arrival: ambulatory Limitations: no limitations - History of Present Illness Initial Comments: This is a 62-year-old female who presents to the emergency department for abdominal pain. States that 3 days ago she started developing pain to the right side of her abdomen that is radiating to the right mid back. Pain is worse with movement and to the touch. Denies any chest pain or shortness of breath. Reports diarrhea but denies any nausea or vomiting. She no longer has her gallbladder. Denies any history of kidney stones or urinary symptoms. She initially went to urgent care, but was advised to come to the emergency department for further evaluation. She does have a history of several abdominal surgeries, including precancerous findings on her colon leading to partial colon resection. MD Complaint: abdominal pain, flank pain - Related Data Home Medications Medication Instructions Recorded Confirmed Cannabidiol (Cbd) [Epidiolex] 0 mg PO HS 11/29/20 11/29/20 Cholecalciferol [Vitamin D3 (25 125 mcg PO DAILY 11/29/20 11/29/20 Mcg = 1000 Iu)] Famotidine [Pepcid] 20 mg PO DAILY 11/29/20 11/29/20 Ferrofood Iron 1 tab PO DAILY 11/29/20 11/29/20 Fish Oil Tab 1 tab PO DAILY 11/29/20 11/29/20 Gabapentin [Neurontin] 100 mg PO Q8HR PRN 11/29/20 11/29/20 HYDROcodone/APAP 10-325MG [[place] 1 - 2 tab PO Q4HR PRN 11/29/20 11/29/20 10-325] Progesterone, Micronized 100 mg PO HS 11/29/20 11/29/20 [Progesterone] Thyroid,Pork [Intensivist Thyroid] 15 mg PO QAM 11/29/20 11/29/20 Thyroid,Pork [Intensivist Thyroid] 60 mg PO QAM 11/29/20 11/29/20 Vitamin B Complex 1 each PO DAILY 11/29/20 11/29/20 estradioL [Estrace] 1.5 mg PO HS 11/29/20 11/29/20 metFORMIN HCL [Glucophage] 500 mg PO W/SUPPER 11/29/20 11/29/20 methocarbamoL [Robaxin] 750 mg PO HS PRN 11/29/20 11/29/20 Previous Rx's Medication Instructions Recorded Celecoxib 200 mg PO BID PRN #30 cap 08/31/23 Dicyclomine [Bentyl] 20 mg PO QID PRN #30 tablet 08/31/23 Lidocaine 5% Patch [Lidoderm 5% 1 patch TOPICAL DAILY PRN #30 patch 08/31/23 Patch] Allergies Allergy/AdvReac Type Severity Reaction Status Date / Time No Known Allergies Allergy Verified 08/31/23 14:49 Review of Systems ROS Statement: Those systems with pertinent positive or pertinent negative responses have been documented in the HPI. ROS Other: All systems not noted in ROS Statement are negative. Past Medical History Additional Past Medical History / Comment(s): back pain History of Any Multi-Drug Resistant Organisms: None Reported Past Surgical History: Hysterectomy, Orthopedic Surgery Additional Past Surgical History / Comment(s): colon resection - precancerous Past Psychological History: No Psychological Hx Reported Smoking Status: Never smoker Past Alcohol Use History: None Reported Past Drug Use History: None Reported General Exam Limitations: no limitations General appearance: alert, in no apparent distress Head exam: Present: atraumatic, normocephalic, normal inspection Respiratory exam: Present: normal lung sounds bilaterally. Absent: respiratory distress, wheezes, rales, rhonchi, stridor Cardiovascular Exam: Present: regular rate, normal rhythm, normal heart sounds. Absent: systolic murmur, diastolic murmur, rubs, gallop, clicks GI/Abdominal exam: Present: soft, tenderness (RUQ), normal bowel sounds. Abse nt: distended Back exam: Present: CVA tenderness (R). Absent: CVA tenderness (L) Neurological exam: Present: alert, oriented X3, CN II-XII intact Psychiatric exam: Present: normal affect, normal mood Skin exam: Present: warm, dry, intact, normal color. Absent: rash Course Vital Signs 08/31/23 08/31/23 08/31/23 14:47 15:07 17:13 Temperature 98.1 F Pulse Rate 87 76 84 Respiratory 18 18 18 Rate Blood Pressure 154/83 157/75 139/87 O2 Sat by Pulse 99 99 97 Oximetry Medical Decision Making - Medical Decision Making This is a 62 year old female who presents to the emergency department for abdominal pain. Was pt. sent in by a medical professional or institution? @ -No Did you speak to anyone other than the patient for history? @ -No Did you review nursing and triage notes? @ -Yes, and I agree, it is accurate with regards to the patient's symptoms. Were old charts reviewed? @ -No Differential Diagnosis? @ -Differential Abdominal Pain Women: Appendicitis, Cholecystitis, diverticulosis, ischemic bowel, pancreatitis, hepatitis, UTI, gastroenteritis, AAA, incarcerated hernia, bowel obstruction, constipation, inflammatory bowel, hepatitis, peptic ulcer disease, splenic infarction, perforated viscus, vulvitis, ovarian torsion, PID, kidney stone, placenta abruption, this is not meant to be an all-inclusive list EKG interpreted by me (3pts min.)? @ -EKG interpreted by me demonstrating the following: Sinus rhythm. Ventricular rate 78 bpm, OR interval 151 ms, QRS duration 83 ms, QTc 4 1 ms. X-rays interpreted by me (1pt min.)? @ -Not obtained CT interpreted by me (1pt min.)? @ -CT scan of the abdomen and pelvis obtained. My interpretation identifies no evidence of bowel wall thickening or free air. U/S interpreted by me (1pt. min.)? @ -Not obtained What testing was considered but not performed? (CT, X-rays, U/S, labs)? Why? @ -None What meds were considered but not given? Why? @ -None Did you discuss the management of the patient with other professionals? @ -No Did you reconcile home meds? @ -No Was smoking cessation discussed for >3mins.? @ -No Was critical care preformed (if so, how long)? @ -No Were there social determinants of health that impacted care today? How? (Homelessness, low income, unemployed, alcoholism, drug addiction, trans portation, low edu. Level, literacy, decrease access to med. care, [facility], rehab)? @ -No Was there de-escalation of care discussed even if they declined? (Discuss DNR or withdrawal of care, Hospice)? @ -No What co-morbidities impacted this encounter? (DM, HTN, Smoking, COPD, CAD, Cancer, CVA, Hep., AIDS, mental health diagnosis, sleep apnea, morbid obesity)? @ -None Was patient admitted / discharged? @ -Discharged. Lab work demonstrates leukocytosis and was otherwise unremarkable. Urinalysis negative for signs of infection. CT scan of the abdomen and pelvis obtained revealing no acute findings. Toradol administered for pain, which she felt was beneficial. Pain is all reproducible and worse with movement. Discussed the possibility of a musculoskeletal pain or irritable bowel. Prescription for Celebrex, Bentyl, and lidocaine patches provided with dosing instructions reviewed. Patient discharged home in stable condition and advised to follow-up with her primary care provider. Undiagnosed new problem with uncertain prognosis? @ -None Drug Therapy requiring intensive monitoring for toxicity (Heparin, Nitro, Insulin, Cardizem)? @ -None Were any procedures done? @ -None Diagnosis/symptom? @ -Abdominal pain Acute, or Chronic, or Acute on Chronic? @ -Acute Uncomplicated (without systemic symptoms) or Complicated (systemic symptoms)? @ -Uncomplicated Side effects of treatment? @ -None Exacerbation, Progression, or Severe Exacerbation] @ -Not applicable Poses a threat to life or bodily function? @ -No Return precautions reviewed in depth, the patient is instructed to return to the emergency department with any new, worsening, or concerning symptoms. Patient verbalized understanding. This case was discussed in detail with the attending ED physician, Dr. Marmolejo. Presentation, findings, and treatment plan discussed in detail as well. - Lab Data Result diagrams: 08/31/23 15:01 08/31/23 15:01 Lab Results 08/31/23 08/31/23 08/31/23 Range/Units 15:01 15:01 15:01 WBC 11.9 H (3.8-10.6) k/uL RBC 4.82 (3.80-5.40) m/uL Hgb 14.6 (11.4-16.0) gm/dL Hct 44.1 (34.0-46.0) % MCV 91.4 (80.0-100.0) fL MCH 30.4 (25.0-35.0) pg MCHC 33.2 (31.0-37.0) g/dL RDW 12.5 (11.5-15.5) % Plt Count 241 (150-450) k/uL MPV 8.1 Neutrophils % 69 % Lymphocytes % 25 % Monocytes % 3 % Eosinophils % 1 % Basophils % 1 % Neutrophils # 8.2 H (1.3-7.7) k/uL Lymphocytes # 2.9 (1.0-4.8) k/uL Monocytes # 0.4 (0-1.0) k/uL Eosinophils # 0.2 (0-0.7) k/uL Basophils # 0.1 (0-0.2) k/uL Sodium 138 (137-145) mmol/L Potassium 4.0 (3.5-5.1) mmol/L Chloride 106 (98-107) mmol/L Carbon Dioxide 26 (22-30) mmol/L Anion Gap 6 mmol/L BUN 10 (7-17) mg/dL Creatinine 0.63 (0.52-1.04) mg/dL Est GFR (CKD-EPI)AfAm >90 (>60 ml/min/1.73 sqM) Est GFR (CKD-EPI)NonAf >90 (>60 ml/min/1.73 sqM) Glucose 101 H (74-99) mg/dL Plasma Lactic Acid Brad (0.7-2.0) mmol/L Calcium 9.7 (8.4-10.2) mg/dL Total Bilirubin 0.8 (0.2-1.3) mg/dL AST 25 (14-36) U/L ALT 26 (4-34) U/L Alkaline Phosphatase 63 (38-126) U/L Total Protein 7.4 (6.3-8.2) g/dL Albumin 4.4 (3.5-5.0) g/dL Amylase 55 (30-110) U/L Lipase 77 (23-300) U/L Urine Color Colorless Urine Appearance Clear (Clear) Urine pH 6.0 (5.0-8.0) Ur Specific [place] 1.002 (1.001-1.035) Urine Protein Negative (Negative) Urine Glucose (UA) Negative (Negative) Urine Ketones Negative (Negative) Urine Blood Negative (Negative) Urine Nitrite Negative (Negative) Urine Bilirubin Negative (Negative) Urine Urobilinogen <2.0 (<2.0) mg/dL Ur Leukocyte Esterase Negative (Negative) 08/31/23 Range/Units 15:01 WBC (3.8-10.6) k/uL RBC (3.80-5.40) m/uL Hgb (11.4-16.0) gm/dL Hct (34.0-46.0) % MCV (80.0-100.0) fL MCH (25.0-35.0) pg MCHC (31.0-37.0) g/dL RDW (11.5-15.5) % Plt Count (150-450) k/uL MPV Neutrophils % % Lymphocytes % % Monocytes % % Eosinophils % % Basophils % % Neutrophils # (1.3-7.7) k/uL Lymphocytes # (1.0-4.8) k/uL Monocytes # (0-1.0) k/uL Eosinophils # (0-0.7) k/uL Basophils # (0-0.2) k/uL Sodium (137-145) mmol/L Potassium (3.5-5.1) mmol/L Chloride (98-107) mmol/L Carbon Dioxide (22-30) mmol/L Anion Gap mmol/L BUN (7-17) mg/dL Creatinine (0.52-1.04) mg/dL Est GFR (CKD-EPI)AfAm (>60 ml/min/1.73 sqM) Est GFR (CKD-EPI)NonAf (>60 ml/min/1.73 sqM) Glucose (74-99) mg/dL Plasma Lactic Acid Brad 1.0 (0.7-2.0) mmol/L Calcium (8.4-10.2) mg/dL Total Bilirubin (0.2-1.3) mg/dL AST (14-36) U/L ALT (4-34) U/L Alkaline Phosphatase (38-126) U/L Total Protein (6.3-8.2) g/dL Albumin (3.5-5.0) g/dL Amylase (30-110) U/L Lipase (23-300) U/L Urine Color Urine Appearance (Clear) Urine pH (5.0-8.0) Ur Specific [place] (1.001-1.035) Urine Protein (Negative) Urine Glucose (UA) (Negative) Urine Ketones (Negative) Urine Blood (Negative) Urine Nitrite (Negative) Urine Bilirubin (Negative) Urine Urobilinogen (<2.0) mg/dL Ur Leukocyte Esterase (Negative) - Radiology Data Radiology results: report reviewed, image reviewed Disposition Clinical Impression: Abdominal pain Disposition: HOME SELF-CARE Instructions (If sedation given, give patient instructions): Abdominal Pain (ED) Additional Instructions: Return to the emergency department with any new, worsening, or concerning symptoms. Try taking the Celebrex twice daily with Tylenol. Do not take any other anti-inflammatories such as ibuprofen with this. You can try taking the Bentyl up to 4 times daily. Be aware that this may also cause you to become constipated, and if it does you may need to take a stool softener or discontinue its use. You can also apply the lidocaine patches daily. Follow up with your primary care provider in 1-2 days. Prescriptions: Dicyclomine [Bentyl] 20 mg PO QID PRN #30 tablet PRN Reason: Gi Upset Celecoxib 200 mg PO BID PRN #30 cap PRN Reason: Pain Lidocaine 5% Patch [Lidoderm 5% Patch] 1 patch TOPICAL DAILY PRN #30 patch PRN Reason: Pain Is patient prescribed a controlled substance at d/c from ED?: No Referrals: Makayla Bower MD [Primary Care Provider] - 1-2 days Time of Disposition: 17:24
[2023-08-31] MEDS: SODIUM CHLORIDE 0.9% 1,000 ML IV STA (15:05)
[2023-08-31] MEDS: KETOROLAC 15 MG/ML 1 ML VIAL IVP STA (15:06)
[2023-08-31 15:07] VITALS: RESP 18; TEMP 98.1
[2023-08-31 15:10] LABS: Appearance,Urine Clear (Clear); Bilirubin,Urine Negative (Negative); Blood,Urine Negative (Negative); Color,Urine Colorless; Glucose,Urine (UA) Negative (Negative); Ketones,Urine Negative (Negative); Leukocyte Esterase,Urine Negative (Negative); Nitrite,Urine Negative (Negative); Protein,Urine Negative (Negative); Specific Gravity,Urine 1.002 (1.001-1.035); Urobilinogen,Urine <2.0 mg/dL (<2.0)
[2023-08-31 15:11] LABS: Basophils # (A) 0.1 k/uL (0-0.2); Basophils % (A) 1 %; Eosinophils # (A) 0.2 k/uL (0-0.7); Eosinophils % (A) 1 %; HCT 44.1 % (34.0-46.0); HGB 14.6 gm/dL (11.4-16.0); Lymphocytes # (A) 2.9 k/uL (1.0-4.8); Lymphocytes % (A) 25 %; MCH 30.4 pg (25.0-35.0); MCHC 33.2 g/dL (31.0-37.0); MCV 91.4 fL (80.0-100.0); Mean Platelet Volume 8.1; Monocytes # (A) 0.4 k/uL (0-1.0); Monocytes % (A) 3 %; Neutrophils # (A) 8.2 k/uL (1.3-7.7); Neutrophils % (A) 69 %; Platelet Count 241 k/uL (150-450); RBC 4.82 m/uL (3.80-5.40); RDW 12.5 % (11.5-15.5); WBC 11.9 k/uL (3.8-10.6)
[2023-08-31 15:23] LABS: ALT 26 U/L (4-34); AST 25 U/L (14-36); African American GFR (CKD) >90 (>60 ml/min/1.73 sqM); Albumin 4.4 g/dL (3.5-5.0); Alkaline Phosphatase 63 U/L (38-126); Amylase 55 U/L (30-110); Anion Gap 6 mmol/L; Blood Urea Nitrogen 10 mg/dL (7-17); Calcium 9.7 mg/dL (8.4-10.2); Carbon Dioxide 26 mmol/L (22-30); Chloride 106 mmol/L (98-107); Glucose 101 mg/dL (74-99); Lipase 77 U/L (23-300); Non-African American GFR(CKD) >90 (>60 ml/min/1.73 sqM); Sodium 138 mmol/L (137-145); Total Bilirubin 0.8 mg/dL (0.2-1.3); Total Protein 7.4 g/dL (6.3-8.2)
--- NOTE | 2023-08-31 17:07 | CT ---
EXAMINATION TYPE: CT abdomen pelvis w con CT DLP: 1163.6 mGycm, Automated exposure control for dose reduction was used. DATE OF EXAM: 08/31/2023 3:49 PM COMPARISON: CT 08/03/2022 CLINICAL INDICATION:Female, 62 years old with history of Right sided abdominal pain; Rt side abdomina l pain. TECHNIQUE: Axial CT of the abdomen and pelvis. Sagittal and coronal reformats were created on a [employer] workstation. Contrast used:100 ml mL of Isovue 300 with IV Contrast, (none if empty) Oral contrast used: without Oral Contrast (none if empty) FINDINGS: LOWER CHEST: Unremarkable lung bases. Heart size normal. Trace pericardial fluid. ABDOMEN LIVER: Tiny hypodensity again seen in both right and left hepatic lobes, statistically likely benign. GALLBLADDER AND BILE DUCTS: Status post cholecystectomy without pathologic dilatation of the biliary tree. PANCREAS: Stable unremarkable SPLEEN: Stable unremarkable ADRENAL GLANDS: Right adrenal stable and unremarkable. Left adrenal 1.7 cm nodule remains stable sinc e at least 2010, considered benign. KIDNEYS AND URETERS: Kidneys enhance symmetrically. Suspect tiny cyst on the right. No visible calcul i or hydronephrosis. Contrast seen in the renal collecting systems on delayed imaging. PELVIS BLADDER: Unremarkable REPRODUCTIVE: Not seen, likely surgically absent. ABDOMEN & PELVIS STOMACH AND BOWEL: Stomach and small bowel are nondistended, no evidence of obstruction. Appendix i s not seen and there are postoperative changes in the cecal region, correlate for appendectomy. Ovoid radiodensity in the cecal lumen could be medication tablet. Mild stool throughout colon without acut e abnormality demonstrated. PERITONEUM/RETROPERITONEUM: No evidence of pneumoperitoneum or free fluid. VASCULATURE: Moderate atherosclerotic calcifications are present throughout the abdominal aorta and i ts branches. No evidence of aortic aneurysm. Portal vein, splenic vein, SMV are enhancing. LYMPH NODES: No enlarged nodes by CT size criteria. SOFT TISSUE/ABDOMINAL WALL: Unremarkable for acute process. Small fat-containing umbilical hernia. MUSCULOSKELETAL: No acute osseous abnormalities. Mild/moderate disc degeneration changes are present throughout the thoracolumbar spine, most progressed L3-S1 where there are moderate canal and foramina l stenoses.. Mild/moderate degenerative changes of the hips. Small focus of sclerosis right iliac alexi ne, likely bone island. No destructive bone lesion is encountered. IMPRESSION: No acute abnormality. No significant change from recent prior.
[2023-08-31 17:43] VITALS: BP 139/87; PULSE 84
== END 2023-08-31 17:34 | disposition home or self-care (01) ==
LOC: EC 14:42
DX: R10.9 Unspecified abdominal pain (principal)
CPT/HCPCS: 36415; 93005; 80053; 82150; 83605; 83690; 85025; 81003; 74177; 99284; 96374; 96361; J1885; Q9967

== ENCOUNTER → 2023-09-26 | Outpatient (CLI) | payer MEDICARE ==
--- NOTE | 2023-09-29 19:34 | MM ---
Reason for Exam: Screening (asymptomatic). Last mammogram was performed 1 year(s) and 2 month(s) ago. Patient History: Menarche at age 11. Patient has no children. Hysterectomy at age 46. Postmenopausal. Other cancer, age 55. Currently using Estrogen, beginning at age 46 for 12 years. Currently using Progesterone, beginning at age 46 for 12 years. 1991, Benign Excisional Biopsy on the right side. Risk Values: Kaci 5 year model risk: 2.1%. NCI Lifetime model risk: 8.4%. Prior Study Comparison: 11/14/2016 Left Diagnostic Mammogram, [facility]. 05/14/2017 Bilateral Screening Mammogram, [facility]. 05/16/2018 Bilateral Screening Mammogram, [facility]. 06/11/2018 Right Diagnostic Mammogram, [facility]. 06/02/2019 Bilateral Diagnostic Mammogram, [facility]. 03/28/2020 Bilateral Diagnostic Mammogram, [facility]. 09/14/2020 Right Diagnostic Mammogram, [facility]. 06/06/2021 Bilateral Screening Mammogram, [facility]. 07/18/2022 Bilateral MG 3D screening mammo w/cad, [facility]. Tissue Density: The breasts are heterogeneously dense, which may obscure small masses. Findings: Analyzed By CAD. Chronic underlying nodularity, better seen on tomographic images. There is no suspicious group of microcalcifications or new suspicious mass in either breast. Overall Assessment: Benign, BI-RAD 2 Management: Screening Mammogram of both breasts in 1 year. . Patient should continue monthly self-breast exams. A clinical breast exam by your physician is recommended on an annual basis. This exam should not preclude additional follow-up of suspicious palpable abnormalities. Note on Kaci scores and lifetime risk: 1. A Kaci score greater than 3% is considered moderate risk. If this is the case, consider specialist referral to assess eligibility for a risk reducing agent. 2. If overall lifetime risk for the development of breast cancer is 20% or higher, the patient may qualify for future screening with alternating mammogram and breast MRI. Electronically signed and approved by: Jayna Giles M.D. Radiologist
== END | disposition home or self-care (01) ==
LOC: RADMAMWWP 12:52
PROVIDERS: ATTEND Family Medicine
DX: Z12.31 Encounter for screening mammogram for malignant neoplasm of breast (principal); Z78.0 Asymptomatic menopausal state
CPT/HCPCS: 77063; 77067

== ENCOUNTER → 2024-10-21 | Outpatient (CLI) | payer MEDICARE ==
--- NOTE | 2024-10-22 07:48 | MM ---
Reason for Exam: Screening (asymptomatic). Last mammogram was performed 1 year(s) and 1 month(s) ago. Patient History: Menarche at age 11. Patient has no children. Hysterectomy at age 46. Postmenopausal. Other cancer, age 55. Currently using Estrogen, beginning at age 46 for 12 years. Currently using Progesterone, beginning at age 46 for 12 years. 1990, Benign Excisional Biopsy on the right side. Risk Values: Kaci 5 year model risk: 2.2%. NCI Lifetime model risk: 8.2%. Prior Study Comparison: 06/06/2021 Bilateral Screening Mammogram, [facility]. 07/18/2022 Bilateral MG 3D screening mammo w/cad, [facility]. 09/26/2023 Bilateral MG 3D screening mammo w/cad, [facility]. Tissue Density: The breasts are heterogeneously dense, which may obscure small masses. Findings: Analyzed By CAD. There is no suspicious group of microcalcifications or new suspicious mass in either breast. Stable chronic nodularity and benign-appearing calcifications. Overall Assessment: Benign, BI-RAD 2 Management: Screening Mammogram of both breasts in 1 year. . Patient should continue monthly self-breast exams. A clinical breast exam by your physician is recommended on an annual basis. This exam should not preclude additional follow-up of suspicious palpable abnormalities. Note on Kaci scores and lifetime risk: 1. A Kaci score greater than 3% is considered moderate risk. If this is the case, consider specialist referral to assess eligibility for a risk reducing agent. 2. If overall lifetime risk for the development of breast cancer is 20% or higher, the patient may qualify for future screening with alternating mammogram and breast MRI. [facility], , 10/22/2024 7:45 AM. Electronically signed and approved by: Juan Ziegler M.D. Radiologis
== END | disposition home or self-care (01) ==
LOC: RADMAMWWP 15:54
PROVIDERS: ATTEND Family Medicine
DX: Z12.31 Encounter for screening mammogram for malignant neoplasm of breast (principal); R92.333 Mammographic heterogeneous density, bilateral breasts; R92.1 Mammographic calcification found on diagnostic imaging of breast; Z78.0 Asymptomatic menopausal state
CPT/HCPCS: 77063; 77067